=== PATIENT | female | born 1985 | race Caucasian/White ===

== ENCOUNTER 2017-04-29 05:45 | Day surgery (SDC) | payer OTHER ==
[~2017-04-29] VITALS: Ht 170.2 cm; Wt 104.3 kg
[2017-04-29 06:53] LABS: HCG,QUAL RESULT NEGATIVE (NEGATIVE)
[2017-04-29] MEDS ORDERED: CLINDAMYCIN 600 mg/50mL D5W 50 ML IV ONE (07:00)
[2017-04-29] MEDS ORDERED: SEVOFLURANE 15 MIN GAS INH ONE (07:07)
[2017-04-29] MEDS ORDERED: MIDAZOLAM HCL 5 MG/5 ML VIAL IVP ONE (07:07)
[2017-04-29] MEDS ORDERED: LR 1,000 ML IV.SOLN IV ONE (07:07)
[2017-04-29] MEDS ORDERED: SUCCINYLCHOLINE CHLORIDE 20 MG/ML(QUELICIN) IVP ONE (07:07)
[2017-04-29] MEDS ORDERED: DEXAMETHASONE SOD PHOSPHATE 4 MG/ML VIAL IVP ONE (07:07)
[2017-04-29] MEDS ORDERED: fentaNYL CITRATE/PF 100 MCG/2 ML AMP IVP ONE (07:07)
[2017-04-29] MEDS ORDERED: LIDOCAINE/EPI 1% 1:100000 20 ML VIAL INJ ONE (07:07)
[2017-04-29] MEDS ORDERED: BUPIVACAINE /DEX PF 0.75% SPINAL 2 ML AMP INJ ONE (07:07)
[2017-04-29] MEDS ORDERED: PROPOFOL 200MG/ 20ML VIAL (DIPRIVAN) IV ONE (07:07)
[2017-04-29] MEDS ORDERED: LR 1,000 ML IV SCH (08:08)
[2017-04-29] MEDS ORDERED: ONDANSETRON HCL 4 MG/2 ML VIAL IVP PRN ×2 (08:15→14:30)
[2017-04-29] MEDS ORDERED: MEPERIDINE HCL/PF 25 MG/ML DISP.SYRIN IVP PRN ×2 (08:15)
[2017-04-29] MEDS ORDERED: HYDROcodone/ACETAMIN 5-325 MG TAB (NORCO/ VICODIN) PO PRN (14:30)
[2017-04-29] MEDS ORDERED: ONDANSETRON 4 MG ODT TAB PO PRN (14:30)
[2017-04-29] MEDS ORDERED: ACETAMINOPHEN 500 MG TABLET PO PRN (14:30)
[2017-04-29] MEDS ORDERED: MEPERIDINE HCL/PF 25 MG/ML DISP.SYRIN ONE (14:38)
[2017-04-29] MEDS ORDERED: ONDANSETRON HCL 4 MG/2 ML VIAL ONE (14:40)
[2017-04-29 15:40] VITALS: BP_SYST 125
[2017-04-29 17:30] VITALS: BP_SYST 106
[2017-04-29 17:47] VITALS: BP_SYST 125
[2017-04-29] MEDS ORDERED: METH4TAB3 PO (18:31)
[2017-04-29] MEDS ORDERED: HYDR-1189 PO (18:32)
[2017-04-29 18:51] VITALS: BP_SYST 106
[2017-04-29] MEDS ORDERED: BACITRACIN/POLYMYXIN B SULFATE 30 GM TOPICAL OINT. TP SCH (21:00)
== END 2017-04-29 19:20 | disposition home or self-care (01) ==
LOC: SDS 05:45 → SMU 05:45 → SDS 19:20
PROVIDERS: ATTEND Otolaryngology
DX: D11.0 Benign neoplasm of parotid gland (principal); Z88.0 Allergy status to penicillin; Z88.8 Allergy status to other drugs, medicaments and biological substances
CPT/HCPCS: 42415; 71020; 84703; 88305; 88307; J0330; J1100; J2175; J2250; J2405; J2704; J3010; J3490 ×2; J7120